=== PATIENT | female | born 1935 | race Asian ===

== ENCOUNTER 2017-08-26 15:40 | Emergency (ER) | payer OTHER ==
[2017-08-26 19:39] LABS: BASOPHIL % 0.4 % (0-2); PLATELET COUNT 262 x10^3mcL (130-400); RED CELL DISTRIBUTION WIDTH 13.5 % (11.5-14.5)
[2017-08-26 19:50] LABS: CALCIUM 9.5 mg/dL (8.5-10.1); CARBON DIOXIDE 27.8 mmol/L (21-32); CHLORIDE SERUM 104 mmol/L (98-107); CREATININE SERUM 1.2 mg/dL (0.6-1.0); GLUCOSE SERUM 113 mg/dL (74-106); POTASSIUM SERUM 4.2 mmol/L (3.5-5.1); SODIUM SERUM 140 mmol/L (136-145)
[2017-08-26 19:55] LABS: ALBUMIN 3.4 g/dL (3.4-5.0); ALKALINE PHOSPHATASE 96 U/L (46-116); ALT/SGPT 16 U/L (14-59); AST/SGOT 19 U/L (15-37); BILIRUBIN TOTAL 0.3 mg/dL (0.20-1.00); TOTAL PROTEIN, SERUM 7.9 g/dL (6.4-8.2)
[2017-08-26 21:05] VITALS: BP 151/90
== END 2017-08-26 21:06 | disposition left against medical advice (07) ==
LOC: ED 15:40 → DU 19:49
PROVIDERS: Emergency Medicine
DX: S20.02XA Contusion of left breast, initial encounter (principal); E11.9 Type 2 diabetes mellitus without complications; I10 Essential (primary) hypertension; K21.9 Gastro-esophageal reflux disease without esophagitis; W17.89XA Other fall from one level to another, initial encounter; Y93.89 Activity, other specified; Y92.89 Other specified places as the place of occurrence of the external cause; Y99.8 Other external cause status
CPT/HCPCS: 36415; 83880; 84439; J3010

== ENCOUNTER 2017-10-30 09:59 | Inpatient (IN) | payer OTHER, MEDICARE ==
[~2017-10-30] VITALS: Ht 144.8 cm; Wt 73.1 kg
[2017-10-30 10:51] LABS: microscopic required? NO
[2017-10-30 11:14] LABS: urine erythrocyte NEGATIVE (NEGATIVE)
[2017-10-30 11:35] LABS: BASOPHIL % 0.5 % (0-2); PLATELET COUNT 279 x10^3mcL (130-400); RED CELL DISTRIBUTION WIDTH 12.9 % (11.5-14.5)
[2017-10-30 12:06] LABS: T3 TOTAL 0.63 ng/mL
[2017-10-30 12:07] LABS: ALKALINE PHOSPHATASE 63 U/L (46-116); ALT/SGPT 25 U/L (14-59); AST/SGOT 41 U/L (15-37); BILIRUBIN TOTAL 0.42 mg/dL (0.20-1.00); C REACTIVE PROTEIN 0.4 mg/dL (<=0.9); CARBON DIOXIDE 25.3 mmol/L (21-32); CHLORIDE SERUM 101 mmol/L (98-107); GLUCOSE SERUM 102 mg/dL (74-106); SODIUM SERUM 136 mmol/L (136-145); TOTAL PROTEIN, SERUM 7.9 g/dL (6.4-8.2)
[2017-10-30 12:11] LABS: ALBUMIN 3.2 g/dL (3.4-5.0); POTASSIUM SERUM 5.7 mmol/L (3.5-5.1)
[2017-10-30 12:59] LABS: ERYTHROCYTE SED RATE 83 mm/hr (0-30)
[2017-10-30 13:15] LABS: FREE T4 1.17 ng/dL (0.76-1.46); FREE THYROXINE INDEX 2.8 ug/dL (1.4-4.5); T4(THYROXINE) 7.3 ug/dL (4.7-13.3)
[2017-10-30 13:16] LABS: CK-MB < 0.5 ng/mL (0-3.6); CREATINE KINASE 50 U/L (26-192)
[2017-10-30] MEDS ORDERED: CARVEDILOL12.5 M1 PO (14:52)
[2017-10-30] MEDS ORDERED: ELIQUIS2.5 MG PO (14:53)
[2017-10-30] MEDS ORDERED: PRINIVIL5 MG PO (14:53)
[2017-10-30] MEDS ORDERED: ZANTAC 150150 MG PO (14:54)
[2017-10-30] MEDS ORDERED: LORAZEPAM1 MG PO (14:54)
[2017-10-30] MEDS ORDERED: EXELON9.5 MG/21 TOP (14:55)
[2017-10-30] MEDS ORDERED: METFORMIN HYDR500 M1 PO (14:55)
[2017-10-30] MEDS ORDERED: LIPITOR10 MG PO (14:57)
[2017-10-30] MEDS ORDERED: ARICEPT10 MG PO (14:57)
[2017-10-30] MEDS ORDERED: SINGULAIR10 MG PO (14:57)
[2017-10-30] MEDS ORDERED: PAXIL10 MG PO (14:58)
[2017-10-30 16:23] VITALS: BP 124/68
[2017-10-30 16:27] VITALS: Ht 144.8 cm; Wt 73.1 kg
[2017-10-30 16:49] LABS: CHOLESTEROL/HDL RATIO 3.5; MAGNESIUM 2.3 mg/dL (1.8-2.4); PHOSPHOROUS 3.6 mg/dL (2.5-4.9)
[2017-10-30 19:45] VITALS: BP 110/57
[2017-10-30 20:11] LABS: CALCIUM 8.5 mg/dL (8.5-10.1); CARBON DIOXIDE 25.3 mmol/L (21-32); CHLORIDE SERUM 109 mmol/L (98-107); CREATININE SERUM 1.2 mg/dL (0.6-1.0); GLUCOSE SERUM 91 mg/dL (74-106); POTASSIUM SERUM 3.6 mmol/L (3.5-5.1); SODIUM SERUM 145 mmol/L (136-145)
[2017-10-31 03:08] LABS: BASOPHIL % 0.2 % (0-2); PLATELET COUNT 281 x10^3mcL (130-400)
[2017-10-31 04:59] LABS: ALBUMIN 3.6 g/dL (3.4-5.0); ALKALINE PHOSPHATASE 70 U/L (46-116); ALT/SGPT 23 U/L (14-59); AMYLASE 151 U/L (25-115); AST/SGOT 21 U/L (15-37); BILIRUBIN TOTAL 0.34 mg/dL (0.20-1.00); CARBON DIOXIDE 23.5 mmol/L (21-32); CHLORIDE SERUM 105 mmol/L (98-107); CREATININE SERUM 1.2 mg/dL (0.6-1.0); GLUCOSE SERUM 120 mg/dL (74-106); LIPASE 1228 IU/L (73-393); PHOSPHOROUS 4.2 mg/dL (2.5-4.9); SODIUM SERUM 144 mmol/L (136-145)
[2017-10-31 05:52] VITALS: BP 132/63
[2017-10-31 09:25] VITALS: BP 175/87
[2017-10-31 12:57] VITALS: BP 166/61
[2017-10-31 17:17] VITALS: BP 161/73
[2017-10-31 21:36] VITALS: BP 155/76
[2017-11-01 05:57] VITALS: BP 142/70
[2017-11-01 07:12] LABS: CALCIUM 8.4 mg/dL (8.5-10.1); CARBON DIOXIDE 23.9 mmol/L (21-32); CHLORIDE SERUM 108 mmol/L (98-107); CREATININE SERUM 0.9 mg/dL (0.6-1.0); GLUCOSE SERUM 118 mg/dL (74-106); POTASSIUM SERUM 3.6 mmol/L (3.5-5.1); SODIUM SERUM 143 mmol/L (136-145)
[2017-11-01 07:13] LABS: BASOPHIL % 0.3 % (0-2); PLATELET COUNT 249 x10^3mcL (130-400)
[2017-11-01 09:09] VITALS: BP 148/79
[2017-11-01 18:07] VITALS: BP 167/73
[2017-11-01 21:08] VITALS: BP 144/61
[2017-11-02 06:30] VITALS: BP 140/69
[2017-11-02 06:43] LABS: BASOPHIL % 0.5 % (0-2); PLATELET COUNT 252 x10^3mcL (130-400); RED CELL DISTRIBUTION WIDTH 12.7 % (11.5-14.5)
[2017-11-02 07:05] LABS: CALCIUM 8.2 mg/dL (8.5-10.1); CHLORIDE SERUM 110 mmol/L (98-107); GLUCOSE SERUM 96 mg/dL (74-106); POTASSIUM SERUM 3.3 mmol/L (3.5-5.1); SODIUM SERUM 146 mmol/L (136-145)
[2017-11-02] MEDS ORDERED: PRI20 PO (10:23)
[2017-11-02] MEDS ORDERED: RES15 PO (10:24)
[2017-11-02 10:29] VITALS: BP 145/68
[2017-11-02] MEDS ORDERED: PAXIL10 MG PO (10:41)
[2017-11-02] MEDS ORDERED: APAP/HYDROCODON1 T13 PO (10:44)
== END 2017-11-02 13:05 | disposition hospice, home (50) ==
LOC: ED 09:59 → MU 14:11 → DU 14:11 → MU 10-31 10:31
PROVIDERS: Family Medicine; Internal Medicine; Specialist
PROC: 0DB98ZX Excision of Duodenum, Via Natural or Artificial Opening Endoscopic, Diagnostic (ICD-10-PCS; 2017-11-01)
PROC: 0DB68ZX Excision of Stomach, Via Natural or Artificial Opening Endoscopic, Diagnostic (ICD-10-PCS; principal; 2017-11-01 11:00)
DX: K80.50 Calculus of bile duct without cholangitis or cholecystitis without obstruction (principal); G93.41 Metabolic encephalopathy; M48.54XA Collapsed vertebra, not elsewhere classified, thoracic region, initial encounter for fracture; E87.5 Hyperkalemia; E11.22 Type 2 diabetes mellitus with diabetic chronic kidney disease; K22.10 Ulcer of esophagus without bleeding; I48.91 Unspecified atrial fibrillation; E86.0 Dehydration; I12.9 Hypertensive chronic kidney disease with stage 1 through stage 4 chronic kidney disease, or unspecified chronic kidney disease; F32.9 Major depressive disorder, single episode, unspecified; G30.9 Alzheimer's disease, unspecified; F02.80 Dementia in other diseases classified elsewhere, unspecified severity, without behavioral disturbance, psychotic disturbance, mood disturbance, and anxiety; K83.8 Other specified diseases of biliary tract; K21.9 Gastro-esophageal reflux disease without esophagitis; Z90.49 Acquired absence of other specified parts of digestive tract; M81.0 Age-related osteoporosis without current pathological fracture; H91.90 Unspecified hearing loss, unspecified ear; D63.8 Anemia in other chronic diseases classified elsewhere; N18.3 Chronic kidney disease, stage 3 (moderate); Z90.710 Acquired absence of both cervix and uterus; R91.8 Other nonspecific abnormal finding of lung field; R13.12 Dysphagia, oropharyngeal phase
CPT/HCPCS: 36600; 43235; 83880; 84439; 87804; 92610-GN; 94150; J0696; J1200; J1610; J1815; J1885; J2060; J2250; J2310; J2405; J3010; J3490; J7030; J7040; Q0092

== ENCOUNTER 2019-10-23 15:59 | Inpatient (IN) | payer OTHER, MEDICARE ==
[~2019-10-23] VITALS: Ht 137.2 cm; Wt 50.0 kg
[~2019-10-23 15:59] MED LIST: APAP/HYDROCODON1 T13 PO; ARICEPT10 MG PO; CARVEDILOL12.5 M1 PO; ELIQUIS2.5 MG PO; EXELON9.5 MG/21 TOP; LIPITOR10 MG PO; LORAZEPAM1 MG PO; METFORMIN HYDR500 M1 PO; PAXIL10 MG PO; PRI20 PO; PRINIVIL5 MG PO; RES15 PO; SINGULAIR10 MG PO; ZANTAC 150150 MG PO
[2019-10-23 16:08] VITALS: Ht 137.2 cm; Wt 50.0 kg
[2019-10-23] MEDS ORDERED: SENNA8.6 M2 PO (16:13)
[2019-10-23] MEDS ORDERED: ELIQUIS2.5 MG PO (16:13)
[2019-10-23] MEDS ORDERED: RESTORIL15 MG GT (16:14)
[2019-10-23] MEDS ORDERED: COREG3.125 MG GT (16:14)
[2019-10-23] MEDS ORDERED: QUETIAPINE FUMA50 M2 PO (16:14)
[2019-10-23] MEDS ORDERED: ZESTRIL2.5 MG PO (16:14)
[2019-10-23 17:25] LABS: PLATELET COUNT 309 x10^3mcL (130-400); RED CELL DISTRIBUTION WIDTH 13.6 % (11.5-14.5)
[2019-10-23 17:30] LABS: ALKALINE PHOSPHATASE 82 U/L (46-116); ALT/SGPT 24 U/L (14-59); AST/SGOT 33 U/L (15-37); BILIRUBIN TOTAL 0.4 mg/dL (0.20-1.00); CARBON DIOXIDE 23.8 mmol/L (21-32); CHLORIDE SERUM 98 mmol/L (98-107); GLUCOSE SERUM 155 mg/dL (74-106); MAGNESIUM 2.7 mg/dL (1.8-2.4); SODIUM SERUM 134 mmol/L (136-145)
[2019-10-23 17:34] LABS: ALBUMIN 3.2 g/dL (3.4-5.0); TOTAL PROTEIN, SERUM 8.4 g/dL (6.4-8.2)
[2019-10-23 17:39] LABS: UA SPECIFIC GRAVITY >=1.030 (1.005-1.035); microscopic required? YES; urine erythrocyte TRACE (NEGATIVE)
[2019-10-23 17:41] LABS: CREATININE SERUM 2.5 mg/dL (0.6-1.0)
[2019-10-23 17:47] LABS: POTASSIUM SERUM 5.6 mmol/L (3.5-5.1)
[2019-10-23 17:55] LABS: BAND NEUTROPHIL 4 % (0-10); BASOPHIL 0 % (0-2); MONOCYTE 2 % (0-7); SEGMENTED NEUTROPHILS 82 % (37-75); rbc morphology (normal/abnorm) NORMAL (NORMAL)
[2019-10-23 21:04] LABS: T3 TOTAL 0.55 ng/mL
[2019-10-23 21:06] LABS: PHOSPHOROUS 4.8 mg/dL (2.5-4.9)
[2019-10-23 21:08] LABS: CHOLESTEROL/HDL RATIO 4.3
[2019-10-23 21:20] LABS: FREE T4 1.42 ng/dL (0.76-1.46); T4(THYROXINE) 8.2 ug/dL (4.7-13.3)
[2019-10-23 22:09] VITALS: BP 156/72
[2019-10-24 05:37] VITALS: BP 154/76
[2019-10-24 07:16] LABS: CALCIUM 9.4 mg/dL (8.5-10.1); CARBON DIOXIDE 22.8 mmol/L (21-32); CHLORIDE SERUM 110 mmol/L (98-107); CREATININE SERUM 1.5 mg/dL (0.6-1.0); GLUCOSE SERUM 134 mg/dL (74-106); PHOSPHOROUS 3.3 mg/dL (2.5-4.9); POTASSIUM SERUM 4.3 mmol/L (3.5-5.1); SODIUM SERUM 143 mmol/L (136-145)
[2019-10-24 08:26] LABS: BASOPHIL % 0.2 % (0-2); PLATELET COUNT 276 x10^3mcL (130-400); RED CELL DISTRIBUTION WIDTH 13.9 % (11.5-14.5)
[2019-10-24 08:52] VITALS: BP 170/82
[2019-10-24 12:13] VITALS: BP 177/62
[2019-10-24 16:19] VITALS: BP 135/71
[2019-10-24 19:47] VITALS: BP 155/70
[2019-10-25] VITALS (8 sets, daily range): BP systolic 148–174; BP diastolic 58–130
[2019-10-25 06:49] LABS: BASOPHIL % 0.3 % (0-2); PLATELET COUNT 281 x10^3mcL (130-400); RED CELL DISTRIBUTION WIDTH 14.5 % (11.5-14.5)
[2019-10-25 07:03] LABS: CALCIUM 9.3 mg/dL (8.5-10.1); CARBON DIOXIDE 22.7 mmol/L (21-32); CHLORIDE SERUM 114 mmol/L (98-107); CREATININE SERUM 1.2 mg/dL (0.6-1.0); GLUCOSE SERUM 121 mg/dL (74-106); MAGNESIUM 2.2 mg/dL (1.8-2.4); PHOSPHOROUS 2.2 mg/dL (2.5-4.9); POTASSIUM SERUM 3.7 mmol/L (3.5-5.1); SODIUM SERUM 148 mmol/L (136-145)
[2019-10-26 01:47] VITALS: BP 118/85
[2019-10-26 04:47] VITALS: BP 125/80
[2019-10-26 07:53] LABS: CALCIUM 8.9 mg/dL (8.5-10.1); CHLORIDE SERUM 115 mmol/L (98-107); CREATININE SERUM 1.3 mg/dL (0.6-1.0); GLUCOSE SERUM 159 mg/dL (74-106); POTASSIUM SERUM 3.7 mmol/L (3.5-5.1); SODIUM SERUM 148 mmol/L (136-145)
[2019-10-26 08:00] LABS: BASOPHIL % 0.2 % (0-2); PLATELET COUNT 298 x10^3mcL (130-400); RED CELL DISTRIBUTION WIDTH 14.2 % (11.5-14.5)
[2019-10-26 09:02] VITALS: BP 132/75
[2019-10-26 13:00] VITALS: BP 138/63
[2019-10-26 16:47] VITALS: BP 164/74
[2019-10-26 21:02] VITALS: BP 170/80
[2019-10-27 00:12] VITALS: BP 146/65
[2019-10-27 05:36] VITALS: BP 156/67
[2019-10-27 08:08] VITALS: BP 164/78
[2019-10-27 10:57] LABS: ALKALINE PHOSPHATASE 51 U/L (46-116); ALT/SGPT 16 U/L (14-59); AST/SGOT 27 U/L (15-37); CALCIUM 8.6 mg/dL (8.5-10.1); CARBON DIOXIDE 28.9 mmol/L (21-32); CHLORIDE SERUM 114 mmol/L (98-107); CREATININE SERUM 1.3 mg/dL (0.6-1.0); GLUCOSE SERUM 138 mg/dL (74-106); LIPASE 1016 IU/L (73-393); POTASSIUM SERUM 3.7 mmol/L (3.5-5.1); SODIUM SERUM 150 mmol/L (136-145); TOTAL PROTEIN, SERUM 6.3 g/dL (6.4-8.2)
[2019-10-27 10:58] LABS: BASOPHIL % 0.2 % (0-2); PLATELET COUNT 278 x10^3mcL (130-400); RED CELL DISTRIBUTION WIDTH 14.2 % (11.5-14.5)
[2019-10-27 11:06] LABS: ALBUMIN 2.5 g/dL (3.4-5.0)
[2019-10-27] MEDS ORDERED: COR200 PO (11:51)
[2019-10-27] MEDS ORDERED: COR6 PO (11:52)
[2019-10-27] MEDS ORDERED: APR25 PO (11:52)
[2019-10-27 21:16] VITALS: BP 122/68
[2019-10-28 05:27] VITALS: BP 157/80
[2019-10-28 07:51] VITALS: BP 122/58
[2019-10-28 09:05] VITALS: BP 149/69
[2019-10-28 10:51] LABS: CALCIUM 8.2 mg/dL (8.5-10.1); CARBON DIOXIDE 32.4 mmol/L (21-32); CHLORIDE SERUM 105 mmol/L (98-107); CREATININE SERUM 1.3 mg/dL (0.6-1.0); GLUCOSE SERUM 153 mg/dL (74-106); POTASSIUM SERUM 3.6 mmol/L (3.5-5.1); SODIUM SERUM 143 mmol/L (136-145)
[2019-10-28 11:51] VITALS: BP 120/61
[2019-10-28 16:32] VITALS: BP 114/57
[2019-10-28 19:36] VITALS: BP 140/60
[2019-10-29 04:09] VITALS: BP 157/85
[2019-10-29 07:21] VITALS: BP 152/57
[2019-10-29 12:35] VITALS: BP 105/61
[2019-10-29 13:21] LABS: CALCIUM 8.1 mg/dL (8.5-10.1); CARBON DIOXIDE 30.3 mmol/L (21-32); CHLORIDE SERUM 104 mmol/L (98-107); GLUCOSE SERUM 135 mg/dL (74-106); POTASSIUM SERUM 3.8 mmol/L (3.5-5.1); SODIUM SERUM 139 mmol/L (136-145)
[2019-10-29 16:45] VITALS: BP 133/65
[2019-10-29 21:46] VITALS: BP 154/71
[2019-10-30 06:09] VITALS: BP 107/63
[2019-10-30 06:26] LABS: BASOPHIL % 0.3 % (0-2); PLATELET COUNT 297 x10^3mcL (130-400); RED CELL DISTRIBUTION WIDTH 13.7 % (11.5-14.5)
[2019-10-30 06:42] LABS: CALCIUM 8.1 mg/dL (8.5-10.1); CHLORIDE SERUM 104 mmol/L (98-107); CREATININE SERUM 0.8 mg/dL (0.6-1.0); GLUCOSE SERUM 135 mg/dL (74-106); MAGNESIUM 2.2 mg/dL (1.8-2.4); PHOSPHOROUS 2.6 mg/dL (2.5-4.9); POTASSIUM SERUM 3.2 mmol/L (3.5-5.1); SODIUM SERUM 139 mmol/L (136-145)
[2019-10-30 07:58] VITALS: BP 151/71
[2019-10-30 13:43] VITALS: BP 145/78
[2019-10-30 15:41] VITALS: BP 158/78
[2019-10-30 20:59] VITALS: BP 154/80
[2019-10-31 05:54] VITALS: BP 145/66
[2019-10-31 06:24] LABS: BASOPHIL % 0.3 % (0-2); PLATELET COUNT 268 x10^3mcL (130-400); RED CELL DISTRIBUTION WIDTH 13.8 % (11.5-14.5)
[2019-10-31 06:44] LABS: CALCIUM 8.2 mg/dL (8.5-10.1); CARBON DIOXIDE 25.8 mmol/L (21-32); CHLORIDE SERUM 106 mmol/L (98-107); CREATININE SERUM 0.7 mg/dL (0.6-1.0); GLUCOSE SERUM 167 mg/dL (74-106); POTASSIUM SERUM 3.5 mmol/L (3.5-5.1); SODIUM SERUM 138 mmol/L (136-145)
[2019-10-31 07:44] VITALS: BP 126/58
[2019-10-31 12:17] VITALS: BP 135/62
[2019-10-31 17:24] VITALS: BP 169/63
[2019-10-31 20:37] VITALS: BP 153/68
[2019-11-01 05:43] VITALS: BP 152/62
[2019-11-01 06:50] LABS: BASOPHIL % 0.2 % (0-2); PLATELET COUNT 291 x10^3mcL (130-400); RED CELL DISTRIBUTION WIDTH 13.6 % (11.5-14.5)
[2019-11-01 07:45] LABS: CALCIUM 8.1 mg/dL (8.5-10.1); CARBON DIOXIDE 25.1 mmol/L (21-32); CHLORIDE SERUM 107 mmol/L (98-107); CREATININE SERUM 0.7 mg/dL (0.6-1.0); GLUCOSE SERUM 131 mg/dL (74-106); POTASSIUM SERUM 4.2 mmol/L (3.5-5.1); SODIUM SERUM 137 mmol/L (136-145)
[2019-11-01 08:45] VITALS: BP 134/70
[2019-11-01 08:46] VITALS: BP 112/49
[2019-11-01 12:22] VITALS: BP 142/64
[2019-11-01 16:24] VITALS: BP 143/64
[2019-11-01 19:29] VITALS: BP 153/70
[2019-11-02 06:33] VITALS: BP 138/70
[2019-11-02 06:37] LABS: BASOPHIL % 0.4 % (0-2); PLATELET COUNT 317 x10^3mcL (130-400); RED CELL DISTRIBUTION WIDTH 13.9 % (11.5-14.5)
[2019-11-02 07:00] LABS: CALCIUM 8.1 mg/dL (8.5-10.1); CARBON DIOXIDE 25.5 mmol/L (21-32); CHLORIDE SERUM 106 mmol/L (98-107); CREATININE SERUM 0.8 mg/dL (0.6-1.0); GLUCOSE SERUM 142 mg/dL (74-106); SODIUM SERUM 137 mmol/L (136-145)
[2019-11-02 08:00] VITALS: BP 131/57
[2019-11-02 12:32] VITALS: BP 118/52
[2019-11-02 12:44] VITALS: BP 112/67
== END 2019-11-02 14:30 | disposition hospice, home (50) | DRG 720 ==
LOC: ED 15:59 → DU 19:25 → MU 10-31 19:28
PROVIDERS: Emergency Medicine; Internal Medicine; Internal Medicine Gastroenterology; Internal Medicine Nephrology; ADMIT Family Medicine
PROC: 0DH63UZ Insertion of Feeding Device into Stomach, Percutaneous Approach (ICD-10-PCS; principal; 2019-10-26 12:45)
PROC: 0DBF8ZZ Excision of Right Large Intestine, Via Natural or Artificial Opening Endoscopic (ICD-10-PCS; 2019-10-30)
PROC: 0DBG8ZZ Excision of Left Large Intestine, Via Natural or Artificial Opening Endoscopic (ICD-10-PCS; 2019-10-30 11:30)
DX: A41.9 Sepsis, unspecified organism (principal); R65.21 Severe sepsis with septic shock; N17.9 Acute kidney failure, unspecified; E44.0 Moderate protein-calorie malnutrition; E11.22 Type 2 diabetes mellitus with diabetic chronic kidney disease; E83.41 Hypermagnesemia; E87.1 Hypo-osmolality and hyponatremia; R13.10 Dysphagia, unspecified; I48.0 Paroxysmal atrial fibrillation; E87.5 Hyperkalemia; G30.9 Alzheimer's disease, unspecified; F02.80 Dementia in other diseases classified elsewhere, unspecified severity, without behavioral disturbance, psychotic disturbance, mood disturbance, and anxiety; Z51.5 Encounter for palliative care; E02 Subclinical iodine-deficiency hypothyroidism; F32.9 Major depressive disorder, single episode, unspecified; N18.3 Chronic kidney disease, stage 3 (moderate); J44.9 Chronic obstructive pulmonary disease, unspecified; F41.9 Anxiety disorder, unspecified; I12.9 Hypertensive chronic kidney disease with stage 1 through stage 4 chronic kidney disease, or unspecified chronic kidney disease; M81.0 Age-related osteoporosis without current pathological fracture; Z66 Do not resuscitate; E86.0 Dehydration; N39.0 Urinary tract infection, site not specified; E78.5 Hyperlipidemia, unspecified; M19.90 Unspecified osteoarthritis, unspecified site; Z90.49 Acquired absence of other specified parts of digestive tract; Z90.710 Acquired absence of both cervix and uterus; Z87.891 Personal history of nicotine dependence; Z95.0 Presence of cardiac pacemaker; Z68.29 Body mass index [BMI] 29.0-29.9, adult; Z79.899 Other long term (current) drug therapy; Z87.440 Personal history of urinary (tract) infections; Z79.84 Long term (current) use of oral hypoglycemic drugs
CPT/HCPCS: 43235; 45378; 82962; 83880; 84439; 87804; C9113; G0378; J0360; J0696; J1200; J1610; J1644; J1815; J1885; J2250; J2270; J2310; J2405; J2543; J2765; J3010; J3480; J3490; J7030; J7050; J7070; J7131; Q0092; Q9966; Q9967